=== PATIENT | male | born 1970 | race Caucasian/White ===

== ENCOUNTER → 2023-01-02 | Outpatient (CLI) | payer OTHER | END | disposition home or self-care (01) | LOC: RADMRIMAIN 17:50 | PROVIDERS: ATTEND Family Medicine | DX: Z53.9 Procedure and treatment not carried out, unspecified reason (principal) ==

== ENCOUNTER 2023-01-10 13:33 | Emergency (ER) | payer OTHER ==
[2023-01-10 13:38] VITALS: RESP 20
[2023-01-10] MEDS ORDERED: diphenhydrAMINE 50 MG/ML 1 ML VIAL IVP STA (13:47)
[2023-01-10] MEDS ORDERED: SODIUM CHLORIDE 0.9% 1,000 ML IV STA (13:47)
[2023-01-10] MEDS ORDERED: ONDANSETRON 4 MG/2 ML VIAL IVP STA (13:47)
[2023-01-10] MEDS ORDERED: KETOROLAC 15 MG/ML 1 ML VIAL IVP STA (13:47)
[2023-01-10] MEDS ORDERED: LORATADINE 10 MG TAB PO STA (14:01)
[2023-01-10] MEDS ORDERED: FLUTICASONE 50MCG/SPRAY NASAL 16GM EA NOSTRIL STA (14:01)
[2023-01-10] MEDS ORDERED: MAG HYDROX/AL HYDROX/SIMETH 30 ML, HYOSCYAMINE ELIXIR 10 ML, LIDOCAINE VISCOUS 2% 10 ML PO STA ×3 (14:18)
--- NOTE | 2023-01-10 14:21 | ED ---
General Adult HPI - General Chief complaint: Headache Stated complaint: headache Time Seen by Provider: 01/10/23 13:41 Source: patient Mode of arrival: ambulatory Limitations: no limitations - History of Present Illness Initial comments: Patient is a 52-year-old male who presents to the emergency department for headache. Patient has headache in his forehead and nasal congestion for the past 2 days. Patient reports continuous postnasal drip which he continues to swallow. He denies history of migraines. He denies fever, chills, throat pain, chest pain, shortness of breath. Patient states his stomach is very irritated in the upper middle abdomen from having swallowing but patient expresses concern that he is having a pancreatitis flareup. He has history of pancreatitis. He denies any back pain. He denies alcohol use and use of new medications. - Related Data Previous Rx's Medication Instructions Recorded Dicyclomine [Bentyl] 10 mg PO TID PRN 7 Days #21 capsule 11/25/22 Cetirizine HCl [Zyrtec] 10 mg PO DAILY #14 tab 01/10/23 Ibuprofen [Motrin] 600 mg PO Q8HR PRN #30 tab 01/10/23 Ondansetron Odt [Zofran Odt] 4 mg PO Q8HR PRN #10 tab 01/10/23 Allergies Allergy/AdvReac Type Severity Reaction Status Date / Time No Known Allergies Allergy Verified 01/10/23 13:38 Review of Systems ROS Statement: Those systems with pertinent positive or pertinent negative responses have been documented in the HPI. ROS Other: All systems not noted in ROS Statement are negative. Past Medical History Past Medical History: No Reported History History of Any Multi-Drug Resistant Organisms: None Reported Past Surgical History: No Surgical Hx Reported Past Psychological History: No Psychological Hx Reported Smoking Status: Former smoker Past Alcohol Use History: None Reported Past Drug Use History: None Reported General Exam Limitations: no limitations General appearance: alert, in no apparent distress Head exam: Present: atraumatic, normocephalic, normal inspection Eye exam: Present: normal appearance, PERRL, EOMI. Absent: scleral icterus, conjunctival injection, periorbital swelling Respiratory exam: Present: normal lung sounds bilaterally. Absent: respiratory distress, wheezes, rales, rhonchi, stridor Cardiovascular Exam: Present: regular rate, normal rhythm, normal heart sounds. Absent: systolic murmur, diastolic murmur, rubs, gallop, clicks GI/Abdominal exam: Present: soft, normal bowel sounds. Absent: distended, tenderness, guarding, rebound, rigid Back exam: Present: normal inspection. Absent: paraspinal tenderness, vertebral tenderness Neurological exam: Present: alert, oriented X3, CN II-XII intact Psychiatric exam: Present: normal affect, normal mood Skin exam: Present: warm, dry, intact, normal color. Absent: rash Course Vital Signs 01/10/23 01/10/23 01/10/23 13:35 14:11 14:30 Temperature 98.4 F Pulse Rate 99 78 Respiratory 20 Rate Blood Pressure 144/82 126/84 O2 Sat by Pulse 99 98 99 Oximetry 01/10/23 15:00 Temperature Pulse Rate Respiratory Rate Blood Pressure 126/79 O2 Sat by Pulse 98 Oximetry Medical Decision Making - Medical Decision Making Was pt. sent in by a medical professional or institution (, PA, SKATESMAN, urgent care, hospital, or group home...) When possible be specific @ -No Did you speak to anyone other than the patient for history (EMS, parent, family, police, friend...)? What history was obtained from this source @ -No Did you review nursing and triage notes (agree or disagree)? Why? @ -I reviewed and agree with nursing and triage notes Were old charts reviewed (outside hosp., previous admission, EMS record, old EKG, old radiological studies, urgent care reports/EKG's, group home records)? Report findings @ -No old charts were reviewed Differential Diagnosis (chest pain, altered mental status, abdominal pain women, abdominal pain men, vaginal bleeding, weakness, fever, dyspnea, syncope, headache, dizziness, GI bleed, back pain, seizure, CVA, palpatations, mental health)? @ -URI, sinusitus,strep pharyngitis, viral pharyngitis, pneumonia, bronchitis- this list is not meant to be all-inclusive EKG interpreted by me (3pts min.). @ -As above X-rays interpreted by me (1pt min.). @ -None done CT interpreted by me (1pt min.). @ -None done U/S interpreted by me (1pt. min.). @ -None done What testing was considered but not performed or refused? (CT, X-rays, U/S, labs)? Why? @ -None What meds were considered but not given or refused? Why? @ -None Did you discuss the management of the patient with other professionals (professionals i.e. , PA, SKATESMAN, lab, RT, psych nurse, psychiatric social worker supervisor, it generalist, teacher, ecological technical officer, porter sample case)? Give summary @ -No Was smoking cessation discussed for >3mins.? @ -No Was critical care preformed (if so, how long)? @ -No Were there social determinants of health that impacted care today? How? (Homel essness, low income, unemployed, alcoholism, drug addiction, transportation, low edu. Level, literacy, decrease access to med. care, assisted, rehab)? @ -No Was there de-escalation of care discussed even if they declined (Discuss DNR or withdrawal of care, Hospice)? DNR status @ -No What co-morbidities impacted this encounter? (DM, HTN, Smoking, COPD, CAD, Cancer, CVA, ARF, Chemo, Hep., AIDS, mental health diagnosis, sleep apnea, morbid obesity)? @ -None Was patient admitted / discharged? Hospital course, mention meds given and route, prescriptions, significant lab abnormalities, going to OR and other pertinent info. @ -Patient presenting with upper respiratory symptoms and mild epigastric pain. The abdomen is soft and nontender. Patient is afebrile. No cough. No vomiting. Laboratory studies obtained. There is no leukocytosis. Lipase within normal limits. COVID-19, RSV, influenza not detected. Patient given migraine cocktail with improvement of symptoms. Patient will be discharged with symptomatic management. He is to follow-up with primary care provider. Undiagnosed new problem with uncertain prognosis? @ -No Drug Therapy requiring intensive monitoring for toxicity (Heparin, Nitro, Insulin, Cardizem)? @ -No Were any procedures done? @ -No Diagnosis/symptom? @ -Upper respiratory infection, headache Acute, or Chronic, or Acute on Chronic? @ -Acute Uncomplicated (without systemic symptoms) or Complicated (systemic symptoms)? @ -Uncomplicated Side effects of treatment? @ -No Exacerbation, Progression, or Severe Exacerbation? @ -No Poses a threat to life or bodily function? How? (Chest pain, USA, CT, pneumonia, PE, COPD, DKA, ARF, appy, cholecystitis, CVA, Diverticulitis, Homicidal, Suicidal, threat to staff... and all critical care pts) @ -No Dr. Ross is my attending - Lab Data Result diagrams: 01/10/23 14:09 01/10/23 14:09 Lab Results 01/10/23 01/10/23 01/10/23 Range/Units 14:09 14:09 14:09 WBC 4.7 (3.8-10.6) k/uL RBC 5.09 (4.30-5.90) m/uL Hgb 16.4 (13.0-17.5) gm/dL Hct 47.9 (39.0-53.0) % MCV 94.0 (80.0-100.0) fL MCH 32.1 (25.0-35.0) pg MCHC 34.2 (31.0-37.0) g/dL RDW 13.0 (11.5-15.5) % Plt Count 173 (150-450) k/uL MPV 7.9 Neutrophils % 61 % Lymphocytes % 29 % Monocytes % 6 % Eosinophils % 2 % Basophils % 1 % Neutrophils # 2.8 (1.3-7.7) k/uL Lymphocytes # 1.4 (1.0-4.8) k/uL Monocytes # 0.3 (0-1.0) k/uL Eosinophils # 0.1 (0-0.7) k/uL Basophils # 0.0 (0-0.2) k/uL Sodium (137-145) mmol/L Potassium (3.5-5.1) mmol/L Chloride (98-107) mmol/L Carbon Dioxide (22-30) mmol/L Anion Gap mmol/L BUN (9-20) mg/dL Creatinine (0.66-1.25) mg/dL Est GFR (CKD-EPI)AfAm (>60 ml/min/1.73 sqM) Est GFR (CKD-EPI)NonAf (>60 ml/min/1.73 sqM) Glucose (74-99) mg/dL Calcium (8.4-10.2) mg/dL Total Bilirubin (0.2-1.3) mg/dL AST (17-59) U/L ALT (4-49) U/L Alkaline Phosphatase (38-126) U/L Total Protein (6.3-8.2) g/dL Albumin (3.5-5.0) g/dL Lipase (23-300) U/L Urine Color Light Yellow Urine Appearance Clear (Clear) Urine pH 6.0 (5.0-8.0) Ur Specific [place] 1.007 (1.001-1.035) Urine Protein Negative (Negative) Urine Glucose (UA) Negative (Negative) Urine Ketones 1+ H (Negative) Urine Blood Negative (Negative) Urine Nitrite Negative (Negative) Urine Bilirubin Negative (Negative) Urine Urobilinogen <2.0 (<2.0) mg/dL Ur Leukocyte Esterase Negative (Negative) Influenza Type A (PCR) Not Detected (Not Detectd) Influenza Type B (PCR) Not Detected (Not Detectd) RSV (PCR) Not Detected (Not Detectd) SARS-CoV-2 (PCR) Not Detected (Not Detectd) 01/10/23 Range/Units 14:09 WBC (3.8-10.6) k/uL RBC (4.30-5.90) m/uL Hgb (13.0-17.5) gm/dL Hct (39.0-53.0) % MCV (80.0-100.0) fL MCH (25.0-35.0) pg MCHC (31.0-37.0) g/dL RDW (11.5-15.5) % Plt Count (150-450) k/uL MPV Neutrophils % % Lymphocytes % % Monocytes % % Eosinophils % % Basophils % % Neutrophils # (1.3-7.7) k/uL Lymphocytes # (1.0-4.8) k/uL Monocytes # (0-1.0) k/uL Eosinophils # (0-0.7) k/uL Basophils # (0-0.2) k/uL Sodium 138 (137-145) mmol/L Potassium 4.0 (3.5-5.1) mmol/L Chloride 102 (98-107) mmol/L Carbon Dioxide 27 (22-30) mmol/L Anion Gap 9 mmol/L BUN 14 (9-20) mg/dL Creatinine 0.72 (0.66-1.25) mg/dL Est GFR (CKD-EPI)AfAm >90 (>60 ml/min/1.73 sqM) Est GFR (CKD-EPI)NonAf >90 (>60 ml/min/1.73 sqM) Glucose 105 H (74-99) mg/dL Calcium 9.0 (8.4-10.2) mg/dL Total Bilirubin 1.1 (0.2-1.3) mg/dL AST 23 (17-59) U/L ALT 19 (4-49) U/L Alkaline Phosphatase 68 (38-126) U/L Total Protein 7.7 (6.3-8.2) g/dL Albumin 4.4 (3.5-5.0) g/dL Lipase 87 (23-300) U/L Urine Color Urine Appearance (Clear) Urine pH (5.0-8.0) Ur Specific [place] (1.001-1.035) Urine Protein (Negative) Urine Glucose (UA) (Negative) Urine Ketones (Negative) Urine Blood (Negative) Urine Nitrite (Negative) Urine Bilirubin (Negative) Urine Urobilinogen (<2.0) mg/dL Ur Leukocyte Esterase (Negative) Influenza Type A (PCR) (Not Detectd) Influenza Type B (PCR) (Not Detectd) RSV (PCR) (Not Detectd) SARS-CoV-2 (PCR) (Not Detectd) Disposition Clinical Impression: Upper respiratory infection Disposition: HOME SELF-CARE Condition: Good Instructions (If sedation given, give patient instructions): Acute Headache (ED) Additional Instructions: Take medication as directed. Please follow-up with your primary care provider in 1-2 days. Return to the emergency department if you experience new, concerning, or worsening symptoms.. Prescriptions: Ibuprofen [Motrin] 600 mg PO Q8HR PRN #30 tab PRN Reason: Pain Ondansetron Odt [Zofran Odt] 4 mg PO Q8HR PRN #10 tab PRN Reason: Nausea Cetirizine HCl [Zyrtec] 10 mg PO DAILY #14 tab Is patient prescribed a controlled substance at d/c from ED?: No Referrals: Angela Walton MD [Primary Care Provider] - 1-2 days
[2023-01-10 14:24] LABS: Basophils % (A) 1 %; Eosinophils # (A) 0.1 k/uL (0-0.7); Eosinophils % (A) 2 %; HCT 47.9 % (39.0-53.0); HGB 16.4 gm/dL (13.0-17.5); Lymphocytes # (A) 1.4 k/uL (1.0-4.8); Lymphocytes % (A) 29 %; MCH 32.1 pg (25.0-35.0); MCHC 34.2 g/dL (31.0-37.0); Mean Platelet Volume 7.9; Monocytes # (A) 0.3 k/uL (0-1.0); Monocytes % (A) 6 %; Neutrophils # (A) 2.8 k/uL (1.3-7.7); Neutrophils % (A) 61 %; Platelet Count 173 k/uL (150-450); RBC 5.09 m/uL (4.30-5.90); WBC 4.7 k/uL (3.8-10.6)
[2023-01-10 14:33] LABS: ALT 19 U/L (4-49); AST 23 U/L (17-59); African American GFR (CKD) >90 (>60 ml/min/1.73 sqM); Albumin 4.4 g/dL (3.5-5.0); Alkaline Phosphatase 68 U/L (38-126); Anion Gap 9 mmol/L; Blood Urea Nitrogen 14 mg/dL (9-20); Carbon Dioxide 27 mmol/L (22-30); Chloride 102 mmol/L (98-107); Glucose 105 mg/dL (74-99); Lipase 87 U/L (23-300); Non-African American GFR(CKD) >90 (>60 ml/min/1.73 sqM); Sodium 138 mmol/L (137-145); Total Bilirubin 1.1 mg/dL (0.2-1.3); Total Protein 7.7 g/dL (6.3-8.2)
[2023-01-10 15:04] LABS: Appearance,Urine Clear (Clear); Bilirubin,Urine Negative (Negative); Blood,Urine Negative (Negative); Color,Urine Light Yellow; Glucose,Urine (UA) Negative (Negative); Ketones,Urine 1+ (Negative); Leukocyte Esterase,Urine Negative (Negative); Nitrite,Urine Negative (Negative); Protein,Urine Negative (Negative); Specific Gravity,Urine 1.007 (1.001-1.035); Urobilinogen,Urine <2.0 mg/dL (<2.0)
[2023-01-10 16:06] VITALS: BP 117/87; PULSE 66; TEMP 98.6
== END 2023-01-10 16:20 | disposition home or self-care (01) ==
LOC: EC 13:33
DX: J06.9 Acute upper respiratory infection, unspecified (principal); Z20.822 Contact with and (suspected) exposure to COVID-19; Z87.891 Personal history of nicotine dependence
CPT/HCPCS: 36415; 80053; 83690; 85025; 81003; 87636; 99284; 96374; 96375 ×2; 96361; J1200; J2405; J1885

== ENCOUNTER 2023-01-19 14:16 | Emergency (ER) | payer OTHER ==
[2023-01-19 14:53] VITALS: RESP 18; TEMP 98.3
--- NOTE | 2023-01-19 15:42 | ED ---
Abdominal Pain HPI - General Chief Complaint: Abdominal Pain Stated Complaint: rt side pain Time Seen by Provider: 01/19/23 15:41 Source: patient Mode of arrival: ambulatory Limitations: no limitations - History of Present Illness Initial Comments: patient is a 52-year-old male presenting with chief complaint of right upper quadrant pain. Pain is been ongoing for the last 2-3 months. Patient is also complaining of testicular pain that been ongoing for similar amount of time. No redness or swelling. No vomiting. No dysuria or hematuria. - Related Data Previous Rx's Medication Instructions Recorded Dicyclomine [Bentyl] 10 mg PO TID PRN 7 Days #21 capsule 11/25/22 Cetirizine HCl [Zyrtec] 10 mg PO DAILY #14 tab 01/10/23 Ibuprofen [Motrin] 600 mg PO Q8HR PRN #30 tab 01/10/23 Ondansetron Odt [Zofran Odt] 4 mg PO Q8HR PRN #10 tab 01/10/23 Allergies Allergy/AdvReac Type Severity Reaction Status Date / Time No Known Allergies Allergy Verified 01/19/23 14:53 Review of Systems ROS Statement: Those systems with pertinent positive or pertinent negative responses have been documented in the HPI. ROS Other: All systems not noted in ROS Statement are negative. Past Medical History Past Medical History: No Reported History History of Any Multi-Drug Resistant Organisms: None Reported Past Surgical History: No Surgical Hx Reported Past Psychological History: No Psychological Hx Reported Smoking Status: Former smoker Past Alcohol Use History: None Reported Past Drug Use History: None Reported General Exam - General Exam Comments Initial Comments: Visual Physical Exam Vital signs reviewed General: Well-appearing, nontoxic, no acute distress. Head: Normocephalic, atraumatic Eyes: PERRLA, EOMI ENT: Airway patent Chest: Nonlabored breathing Skin: No visual rash, normal skin tone Neuro: Alert and oriented 3 Musculoskeletal: No gross abnormalities Limitations: no limitations General appearance: alert, in no apparent distress Head exam: Present: atraumatic, normocephalic, normal inspection Eye exam: Present: normal appearance, EOMI. Absent: periorbital swelling Neck exam: Present: normal inspection, full ROM Respiratory exam: Present: normal lung sounds bilaterally. Absent: respiratory distress, wheezes, rales, rhonchi, stridor Cardiovascular Exam: Present: regular rate, normal rhythm, normal heart sounds. Absent: systolic murmur, diastolic murmur, rubs, gallop, clicks GI/Abdominal exam: Present: soft. Absent: distended, tenderness, guarding, rebound, rigid Neurological exam: Present: alert, oriented X3, CN II-XII intact Psychiatric exam: Present: normal affect, normal mood Skin exam: Present: warm, dry, intact, normal color. Absent: rash Course Vital Signs 01/19/23 14:51 Temperature 98.3 F Pulse Rate 82 Respiratory 18 Rate Blood Pressure 131/79 O2 Sat by Pulse 99 Oximetry Medical Decision Making - Medical Decision Making Was pt. sent in by a medical professional or institution (, PA, POLICE JUDGE, urgent care, hospital, or long-term...) When possible be specific @ -No Did you speak to anyone other than the patient for history (EMS, parent, family, police, friend...)? What history was obtained from this source @ -No Did you review nursing and triage notes (agree or disagree)? Why? @ -I reviewed and agree with nursing and triage notes Were old charts reviewed (outside hosp., previous admission, EMS record, old EKG, old radiological studies, urgent care reports/EKG's, long-term records)? Report findings @ -No old charts were reviewed Differential Diagnosis (chest pain, altered mental status, abdominal pain women, abdominal pain men, vaginal bleeding, weakness, fever, dyspnea, syncope, headache, dizziness, GI bleed, back pain, seizure, CVA, palpatations, mental health, musculoskeletal)? @ -Differential includes musculoskeletal pain, rib fracture, cholecystitis, this is not known simplest EKG interpreted by me (3pts min.). @ -As above X-rays interpreted by me (1pt min.). @ -Chest x-ray shows no acute process CT interpreted by me (1pt min.). @ -None done U/S interpreted by me (1pt. min.). @ -Ultrasound of the right upper quadrant and scrotum showed no acute process What testing was considered but not performed or refused? (CT, X-rays, U/S, labs)? Why? @ -None What meds were considered but not given or refused? Why? @ -None Did you discuss the management of the patient with other professionals (professionals i.e. Dr., PA, POLICE JUDGE, lab, RT, psych nurse, secondary social studies teacher, professor of public administration, teacher, safety and security officer, adult protective caseworker)? Give summary @ -No Was smoking cessation discussed for >3mins.? @ -No Was critical care preformed (if so, how long)? @ -No Were there social determinants of health that impacted care today? How? (Homelessness, low income, unemployed, alcoholism, drug addiction, transportation, low edu. Level, literacy, decrease access to med. care, group home, rehab)? @ -No Was there de-escalation of care discussed even if they declined (Discuss DNR or withdrawal of care, Hospice)? DNR status @ -No What co-morbidities impacted this encounter? (DM, HTN, Smoking, COPD, CAD, Cancer, CVA, ARF, Chemo, Hep., AIDS, mental health diagnosis, sleep apnea, mor bid obesity)? @ -None Was patient admitted / discharged? Hospital course, mention meds given and route, prescriptions, significant lab abnormalities, going to OR and other pertinent info. @ -Patient is a 52-year-old male presenting with chief complaint of right-sided rib pain that is ongoing for 2-3 months. Patient also admits to some scrotal pain is been ongoing for the same amount of time. No nausea, vomiting, chest pain, difficulty breathing, injury or trauma. Urine shows no bleeding or infection. Ultrasound of the right upper quadrant and scrotum are negative. Chest x-ray shows no acute process. Patient is resting comfortably. He appears stable for discharge with outpatient follow-up. Follow-up with PCP. Report back to ER with any new or worsening symptoms. Discussed return parameters and answered all questions. Patient conveyed verbal understanding and agreed to the plan. I discussed this case in detail with my attending Dr. Garcia Undiagnosed new problem with uncertain prognosis? @ -No Drug Therapy requiring intensive monitoring for toxicity (Heparin, Nitro, Insulin, Cardizem)? @ -No Were any procedures done? @ -No Diagnosis/symptom? @ -Rib pain Acute, or Chronic, or Acute on Chronic? @ -Acute Uncomplicated (without systemic symptoms) or Complicated (systemic symptoms)? @ -Uncomplicated Side effects of treatment? @ -No Exacerbation, Progression, or Severe Exacerbation? @ -No Poses a threat to life or bodily function? How? (Chest pain, USA, CT, pneumonia, PE, COPD, DKA, ARF, appy, cholecystitis, CVA, Diverticulitis, Homicidal, Suicidal, threat to staff... and all critical care pts) @ -No - Lab Data Lab Results 01/19/23 Range/Units 18:02 Urine Color Light Yellow Urine Appearance Clear (Clear) Urine pH 6.0 (5.0-8.0) Ur Specific [place] 1.006 (1.001-1.035) Urine Protein Negative (Negative) Urine Glucose (UA) Negative (Negative) Urine Ketones Negative (Negative) Urine Blood Negative (Negative) Urine Nitrite Negative (Negative) Urine Bilirubin Negative (Negative) Urine Urobilinogen <2.0 (<2.0) mg/dL Ur Leukocyte Esterase Negative (Negative) Disposition Clinical Impression: Rib pain Disposition: HOME SELF-CARE Condition: Good Instructions (If sedation given, give patient instructions): Costochondritis (ED) Additional Instructions: Follow-up with PCP. Report back to ER with any new or worsening symptoms. Take Motrin and Tylenol as needed for pain control. Is patient prescribed a controlled substance at d/c from ED?: No Referrals: Angela Walton MD [Primary Care Provider] - 1-2 days Time of Disposition: 18:40
--- NOTE | 2023-01-19 16:42 | US ---
EXAMINATION TYPE: US abdomen limited DATE OF EXAM: 01/19/2023 COMPARISON: NONE CLINICAL INDICATION: Male, 52 years old with history of RUQ pain; RUQ pain TECHNIQUE: Multiple sonographic images of the right upper quadrant are obtained. FINDINGS: EXAM MEASUREMENTS: Liver Length: 12.7 cm Gallbladder Wall: .2 cm CBD: .3 cm Right Kidney: 9.6 x 5.0 x 3.8 cm REPAIRER RESISTANCE WELDING MACHINES NOTES: Pancreas: Heterogenous. Liver: wnl Gallbladder: No stones seen Evidence for sonographic Fermin's sign: no CBD: wnl Right Kidney: wnl The visualized portions of the pancreas are unremarkable. The liver is unremarkable without evidence of focal lesion. No cholelithiasis, pericholecystic fluid, or wall thickening. Per forming and assembling supervisor, negat chen sonographic Fermin sign. The common bile duct within normal limits. The right kidney is unremarka ble without evidence of hydronephrosis, nephrolithiasis, or solid contour deforming mass. IMPRESSION: No acute process.
--- NOTE | 2023-01-19 16:45 | US ---
EXAMINATION TYPE: US scrotum with doppler. Grayscale and color Doppler Duplex imaging performed of t magalis scrotum. DATE OF EXAM: 01/19/2023 COMPARISON: Scrotal ultrasound 11/13/2022 CLINICAL INDICATION: Male, 52 years old with history of L testicular pain; Left testicle pain. EXAM MEASUREMENTS: TESTICLES: Right Testicle: 4.2 x 1.8 x 3.0 cm Left Testicle: 4.2 x 2.1 x 2.9 cm EPIDIDYMIS HEAD: Right Epididymis: 1.1 x 1.0 x .9 cm Left Epididymis: 1.1 x .7 x 1.1 cm Doppler performed to assess for testicular vascularity; good bilateral color flow and waveforms are s een. There is no evidence of testicular torsion. Presence of hydroceles: No Presence of varicoceles: No IMPRESSION: Unremarkable scrotal ultrasound. No significant change from prior exam.
--- NOTE | 2023-01-19 17:30 | XR ---
EXAMINATION TYPE: XR chest 2V DATE OF EXAM: 01/19/2023 COMPARISON: None INDICATION: Right-sided rib pain TECHNIQUE: Frontal and lateral views of the chest are obtained. FINDINGS: The heart size is normal. The pulmonary vasculature is normal. The lungs are clear. No acute displaced rib fractures are evident. No pneumothorax is evident. IMPRESSION: 1. No acute pulmonary process.
[2023-01-19 18:22] LABS: Appearance,Urine Clear (Clear); Bilirubin,Urine Negative (Negative); Blood,Urine Negative (Negative); Color,Urine Light Yellow; Glucose,Urine (UA) Negative (Negative); Ketones,Urine Negative (Negative); Leukocyte Esterase,Urine Negative (Negative); Nitrite,Urine Negative (Negative); Protein,Urine Negative (Negative); Specific Gravity,Urine 1.006 (1.001-1.035); Urobilinogen,Urine <2.0 mg/dL (<2.0)
[2023-01-19] MEDS ORDERED: LIDOCAINE 5% PATCH TOPICAL STA (18:38)
[2023-01-19] MEDS ORDERED: KETOROLAC 15 MG/ML 1 ML VIAL IM STA (18:38)
[2023-01-19 19:58] VITALS: BP 128/82; PULSE 78
== END 2023-01-19 19:56 | disposition home or self-care (01) ==
LOC: EC 14:16
DX: R07.81 Pleurodynia (principal); Z87.891 Personal history of nicotine dependence
CPT/HCPCS: 81003; 71046; 93975; 76870; 76705; 99284; 96372; J1885

== ENCOUNTER 2023-01-26 11:45 | Emergency (ER) | payer OTHER ==
[2023-01-26 12:15] VITALS: TEMP 98.4
[2023-01-26 12:49] LABS: Appearance,Urine Clear (Clear); Bilirubin,Urine Negative (Negative); Blood,Urine Negative (Negative); Color,Urine Colorless; Glucose,Urine (UA) Negative (Negative); Ketones,Urine Negative (Negative); Leukocyte Esterase,Urine Negative (Negative); Nitrite,Urine Negative (Negative); Protein,Urine Negative (Negative); Specific Gravity,Urine 1.001 (1.001-1.035); Urobilinogen,Urine <2.0 mg/dL (<2.0)
--- NOTE | 2023-01-26 14:06 | XR ---
EXAMINATION TYPE: XR chest 2V DATE OF EXAM: 01/26/2023 COMPARISON: Chest x-ray one week ago HISTORY: Cough. TECHNIQUE: Frontal and lateral views of the chest are obtained. FINDINGS: There is no suspicious focal air space opacity, pleural effusion, or pneumothorax seen. T he cardiac silhouette size is stable and within normal limits. The osseous structures are intact. IMPRESSION: No acute cardiopulmonary process. No significant change from prior.
--- NOTE | 2023-01-26 14:45 | ED ---
General Adult HPI - General Chief complaint: Headache Stated complaint: Head Pain/Side pain right Time Seen by Provider: 01/26/23 13:40 Source: patient, RN notes reviewed Mode of arrival: ambulatory Limitations: no limitations - History of Present Illness Initial comments: 52-year-old male presents emergency Department with chief complaint of headache, congestion, sinus pressure. Patient states that he's been sick for over 2 weeks with sinus congestion and facial pressure with headache. Patient states been coughing does complain of right rib pain no abdominal pain denies nausea vomiting diarrhea constipation. Denies feeling short of breath with exertion no pleuritic pain. - Related Data Previous Rx's Medication Instructions Recorded Dicyclomine [Bentyl] 10 mg PO TID PRN 7 Days #21 capsule 11/25/22 Cetirizine HCl [Zyrtec] 10 mg PO DAILY #14 tab 01/10/23 Ibuprofen [Motrin] 600 mg PO Q8HR PRN #30 tab 01/10/23 Ondansetron Odt [Zofran Odt] 4 mg PO Q8HR PRN #10 tab 01/10/23 Amoxic-Pot Clav 875-125Mg 1 tab PO Q12HR #20 tab 01/26/23 [Augmentin 875-125] Allergies Allergy/AdvReac Type Severity Reaction Status Date / Time No Known Allergies Allergy Verified 01/26/23 12:15 Review of Systems ROS Statement: Those systems with pertinent positive or pertinent negative responses have been documented in the HPI. ROS Other: All systems not noted in ROS Statement are negative. Past Medical History Past Medical History: No Reported History History of Any Multi-Drug Resistant Organisms: None Reported Past Surgical History: No Surgical Hx Reported Past Psychological History: No Psychological Hx Reported Smoking Status: Former smoker Past Alcohol Use History: None Reported Past Drug Use History: None Reported General Exam Limitations: no limitations General appearance: alert, in no apparent distress Head exam: Present: atraumatic, normocephalic, normal inspection Eye exam: Present: normal appearance, PERRL, EOMI. Absent: scleral icterus, conjunctival injection, periorbital swelling ENT exam: Present: mucous membranes moist, TM's normal bilaterally, normal external ear exam, other (Frontal sinus tenderness). Absent: normal oropharynx (Postnasal drainage) Neck exam: Present: normal inspection, full ROM. Absent: tenderness, meningismus, lymphadenopathy Respiratory exam: Present: normal lung sounds bilaterally, chest wall tenderness (Right-sided rib tenderness). Absent: respiratory distress, wheezes, rales, rhonchi, stridor Cardiovascular Exam: Present: regular rate, normal rhythm, normal heart sounds. Absent: systolic murmur, diastolic murmur, rubs, gallop, clicks Back exam: Absent: CVA tenderness (R), CVA tenderness (L) Neurological exam: Present: alert Skin exam: Present: warm, dry, intact, normal color. Absent: rash Course Vital Signs 01/26/23 01/26/23 12:14 14:52 Temperature 98.4 F Pulse Rate 86 84 Respiratory 20 18 Rate Blood Pressure 107/75 110/80 O2 Sat by Pulse 96 96 Oximetry Medical Decision Making - Medical Decision Making Was pt. sent in by a medical professional or institution (, PA, AUTOMATION ENGINEERING MANAGER, urgent care, hospital, or custodial...) When possible be specific @ -No Did you speak to anyone other than the patient for history (EMS, parent, family, police, friend...)? What history was obtained from this source @ -No Did you review nursing and triage notes (agree or disagree)? Why? @ -I reviewed and agree with nursing and triage notes Were old charts reviewed (outside hosp., previous admission, EMS record, old EKG , old radiological studies, urgent care reports/EKG's, custodial records)? Report findings @ -No old charts were reviewed Differential Diagnosis (chest pain, altered mental status, abdominal pain women, abdominal pain men, vaginal bleeding, weakness, fever, dyspnea, syncope, headache, dizziness, GI bleed, back pain, seizure, CVA, palpatations, mental health, musculoskeletal)? @ -Sinusitis, acute bronchitis, pneumonia, costochondritis, this list is not all-inclusive. EKG interpreted by me (3pts min.). @ -None X-rays interpreted by me (1pt min.). @ -Chest x-ray shows no acute process. CT interpreted by me (1pt min.). @ -None done U/S interpreted by me (1pt. min.). @ -None done What testing was considered but not performed or refused? (CT, X-rays, U/S, labs)? Why? @ -None What meds were considered but not given or refused? Why? @ -None Did you discuss the management of the patient with other professionals (professionals i.e. , PA, AUTOMATION ENGINEERING MANAGER, lab, RT, psych nurse, social security benefits interviewer, management consulting, teacher, public health service officer, case liner)? Give summary @ -No Was smoking cessation discussed for >3mins.? @ -No Was critical care preformed (if so, how long)? @ -No Were there social determinants of health that impacted care today? How? (Homelessness, low income, unemployed, alcoholism, drug addiction, transportation, low edu. Level, literacy, decrease access to med. care, nursing home, rehab)? @ -No Was there de-escalation of care discussed even if they declined (Discuss DNR or withdrawal of care, Hospice)? DNR status @ -No What co-morbidities impacted this encounter? (DM, HTN, Smoking, COPD, CAD, Cancer, CVA, ARF, Chemo, Hep., AIDS, mental health diagnosis, sleep apnea, morbid obesity)? @ -None Was patient admitted / discharged? Hospital course, mention meds given and route, prescriptions, significant lab abnormalities, going to OR and other pertinent info. @ -Discharge patient has acute sinusitis his symptoms have been present for 2 weeks. Patient was placed on Augmentin. Patient is worse or rib tenderness from coughing x-ray is negative this is related to costochondritis. Patient will be discharged and stable condition with close follow-up. Undiagnosed new problem with uncertain prognosis? @ -No Drug Therapy requiring intensive monitoring for toxicity (Heparin, Nitro, Insulin, Cardizem)? @ -No Were any procedures done? @ -No Diagnosis/symptom? @ -Sinusitis, costochondritis Acute, or Chronic, or Acute on Chronic? @ -Acute Uncomplicated (without systemic symptoms) or Complicated (systemic symptoms)? @ -Uncomplicated Side effects of treatment? @ -No Exacerbation, Progression, or Severe Exacerbation? @ -No Poses a threat to life or bodily function? How? (Chest pain, [place], [place], pneumonia, PE, COPD, DKA, ARF, appy, cholecystitis, CVA, Diverticulitis, Homicidal, Suicidal, threat to staff... and all critical care pts) @ -No - Lab Data Lab Results 01/26/23 Range/Units 12:19 Urine Color Colorless Urine Appearance Clear (Clear) Urine pH 6.0 (5.0-8.0) Ur Specific Cosmos 1.001 (1.001-1.035) Urine Protein Negative (Negative) Urine Glucose (UA) Negative (Negative) Urine Ketones Negative (Negative) Urine Blood Negative (Negative) Urine Nitrite Negative (Negative) Urine Bilirubin Negative (Negative) Urine Urobilinogen <2.0 (<2.0) mg/dL Ur Leukocyte Esterase Negative (Negative) Disposition Clinical Impression: Sinusitis, Rib pain on right side Disposition: HOME SELF-CARE Condition: Stable Instructions (If sedation given, give patient instructions): Costochondritis (ED) Additional Instructions: Please return to the Emergency Department if symptoms worsen or any other concerns. Prescriptions: Amoxic-Pot Clav 875-125Mg [Augmentin 875-125] 1 tab PO Q12HR #20 tab Is patient prescribed a controlled substance at d/c from ED?: No Referrals: Angela Walton MD [Primary Care Provider] - 1-2 days Time of Disposition: 14:45
[2023-01-26 14:53] VITALS: BP 110/80; PULSE 84; RESP 18
== END 2023-01-26 14:53 | disposition home or self-care (01) ==
LOC: EC 11:45
DX: J32.9 Chronic sinusitis, unspecified (principal); M94.0 Chondrocostal junction syndrome [Tietze]; Z87.891 Personal history of nicotine dependence
CPT/HCPCS: 71046; 81003; 99284

== ENCOUNTER 2023-02-09 16:48 | Emergency (ER) | payer OTHER ==
[2023-02-09 17:18] VITALS: RESP 16; TEMP 98.2
[2023-02-09] MEDS ORDERED: ONDANSETRON 4 MG/2 ML VIAL IVP STA (19:03)
[2023-02-09] MEDS ORDERED: SODIUM CHLORIDE 0.9% 1,000 ML IV STA (19:03)
[2023-02-09] MEDS ORDERED: KETOROLAC 15 MG/ML 1 ML VIAL IVP STA (19:03)
[2023-02-09] MEDS ORDERED: diphenhydrAMINE 50 MG/ML 1 ML VIAL IVP STA (19:03)
--- NOTE | 2023-02-09 19:40 | ED ---
General Adult HPI - General Chief complaint: Headache Stated complaint: headache Time Seen by Provider: 02/09/23 18:33 Source: patient Mode of arrival: ambulatory Limitations: no limitations - History of Present Illness Initial comments: Dictation was produced using Meludia dictation software. please excuse any grammatical, word or spelling errors. Chief Complaint: 52-year-old male presents emergency Department with headache History of Present Illness: 52-year-old male presents to the ER for headache. Patient has been having intermittent bouts of headaches for the last 2 days. He states she's been dealing with sinus pressure and sinus headaches for the last several weeks. Saw his primary care doctor who ordered sinus CT and CT chest. Patient states that the headache is frontal. Nonsevere. States that his symptoms are waxing and waning. Denies any numbness and paresthesias. No vision changes patient was seen in the ER 2 weeks ago for the same complaint. The ROS documented in this emergency department record has been reviewed and confirmed by me. Those systems with pertinent positive or negative responses have been documented in the HPI. All other systems are other negative and/or noncontributory. - Related Data Previous Rx's Medication Instructions Recorded Dicyclomine [Bentyl] 10 mg PO TID PRN 7 Days #21 capsule 11/25/22 Cetirizine HCl [Zyrtec] 10 mg PO DAILY #14 tab 01/10/23 Ibuprofen [Motrin] 600 mg PO Q8HR PRN #30 tab 01/10/23 Ondansetron Odt [Zofran Odt] 4 mg PO Q8HR PRN #10 tab 01/10/23 Amoxic-Pot Clav 875-125Mg 1 tab PO Q12HR #20 tab 01/26/23 [Augmentin 875-125] Allergies Allergy/AdvReac Type Severity Reaction Status Date / Time No Known Allergies Allergy Verified 02/09/23 17:18 Review of Systems ROS Statement: Those systems with pertinent positive or pertinent negative responses have been documented in the HPI. ROS Other: All systems not noted in ROS Statement are negative. Past Medical History Past Medical History: No Reported History History of Any Multi-Drug Resistant Organisms: None Reported Past Surgical History: No Surgical Hx Reported Past Psychological History: No Psychological Hx Reported Smoking Status: Former smoker Past Alcohol Use History: None Reported Past Drug Use History: None Reported General Exam - General Exam Comments Initial Comments: PHYSICAL EXAM: General Impression: Alert and oriented x3, not in acute distress HEENT: Normocephalic atraumatic, extra-ocular movements intact, pupils equal and reactive to light bilaterally, mucous membranes moist. Cardiovascular: Heart regular rate and rhythm Chest: Able to complete full sentences, no retractions, no tachypnea Abdomen: abdomen soft, non-tender, non-distended, no organomegaly Musculoskeletal: Pulses present and equal in all extremities, no peripheral edema Motor: no focal deficits noted Neurological: CN II-XII grossly intact, no focal motor or sensory deficits noted Skin: Intact with no visualized rashes Psych: Normal affect and mood Limitations: no limitations Course Vital Signs 02/09/23 17:16 Temperature 98.2 F Pulse Rate 83 Respiratory 16 Rate Blood Pressure 124/79 O2 Sat by Pulse 98 Oximetry - Reevaluation(s) Reevaluation #1: 02/09/23 20:[address] and chest CT was reviewed ordered by primary care doctor earlier today. No paranasal sinus disease noted. Does appear to be severe nasal septal displacement. CT chest shows no acute pulmonary process. Medical Decision Making - Medical Decision Making Was pt. sent in by a medical professional or institution (, PA, VIDEO GAMES MECHANIC, urgent care, hospital, or fdc...) When possible be specific @ -No Did you speak to anyone other than the patient for history (EMS, parent, family, police, friend...)? What history was obtained from this source @ -No Did you review nursing and triage notes (agree or disagree)? Why? @ -I reviewed and agree with nursing and triage notes Were old charts reviewed (outside hosp., previous admission, EMS record, old EKG, old radiological studies, urgent care reports/EKG's, fdc records)? Report findings @ -Outside imaging studies were reviewed showing normal CT sinus Differential Diagnosis (chest pain, altered mental status, abdominal pain women, abdominal pain men, vaginal bleeding, musculoskeletal, weakness, fever, dyspnea, syncope, headache, dizziness, GI bleed, back pain, seizure, CVA, palpatations, mental health)? @ -Differential Headache: Migraine, tension, cluster, carbon monoxide, central venous thrombosis, pension karma temporal arteritis, acute closure glaucoma, intercranial hemorrhage, mastoiditis, sinusitis, head injury, this is not meant to be an all-inclusive list. EKG interpreted by me (3pts min.). @ -None done X-rays interpreted by me (1pt min.). @ -None done CT interpreted by me (1pt min.). @ -None done U/S interpreted by me (1pt. min.). @ -None done What testing was considered but not performed or refused? (CT, X-rays, U/S, labs)? Why? @ -None What meds were considered but not given or refused? Why? @ -None Did you discuss the management of the patient with other professionals (professionals i.e. DrGuillermo, PA, VIDEO GAMES MECHANIC, lab, RT, psych nurse, social media editor, senior marketing coordinator, teacher, executive vice president and chief operating officer, medical case worker)? Give summary @ -No Was smoking cessation discussed for >3mins.? @ -No Was critical care preformed (if so, how long)? @ -No Were there social determinants of health that impacted care today? How? (Homelessness, low income, unemployed, alcoholism, drug addiction, transportation, low edu. Level, literacy, decrease access to med. care, skilled nursing, rehab)? @ -No Was there de-escalation of care discussed even if they declined (Discuss DNR or withdrawal of care, Hospice)? DNR status @ -No What co-morbidities impacted this encounter? (DM, HTN, Smoking, COPD, CAD, Cancer, CVA, ARF, Chemo, Hep., AIDS, mental health diagnosis, sleep apnea, morbid obesity)? @ -None Was patient admitted / discharged? Hospital course, mention meds given and route, prescriptions, significant lab abnormalities, going to OR and other pertinent info. @ -52-year-old male presents emergency department for headache. Patient is a chronic headache. Patient had recent imaging studies. Patient has no high-risk features. Given headache cocktail discharged told to follow-up with primary care doctor. Undiagnosed new problem with uncertain prognosis? @ -No Drug Therapy requiring intensive monitoring for toxicity (Heparin, Nitro, Insulin, Cardizem)? @ -No Were any procedures done? @ -No Diagnosis/symptom? Acute, or Chronic, or Acute on Chronic? Uncomplicated (without systemic symptoms) or Complicated (systemic symptoms)? @ -1. Acute on Chronic Headache Side effects of treatment? @ -No Exacerbation, Progression, or Severe Exacerbation? @ -No Poses a threat to life or bodily function? How? (Chest pain, [place], [place], pneumonia, PE, COPD, DKA, ARF, appy, cholecystitis, CVA, Diverticulitis, Homicidal, Suicidal, threat to staff... and all critical care pts) @ -No Disposition Clinical Impression: Headache Disposition: HOME SELF-CARE Condition: Good Instructions (If sedation given, give patient instructions): Acute Headache (ED) Is patient prescribed a controlled substance at d/c from ED?: No Referrals: Angela Walton MD [Primary Care Provider] - 1-2 days Time of Disposition: 21:42
[2023-02-09 22:29] VITALS: BP 122/72; PULSE 78
== END 2023-02-09 22:29 | disposition home or self-care (01) ==
LOC: EC 16:48
DX: R51.9 Headache, unspecified (principal); Z87.891 Personal history of nicotine dependence
CPT/HCPCS: 99284; 96374; 96375 ×2; 96361; J1200; J2405; J1885

== ENCOUNTER 2023-02-14 18:57 | Emergency (ER) | payer OTHER ==
[2023-02-14 19:09] VITALS: RESP 18; TEMP 97.6
[2023-02-14] MEDS ORDERED: diphenhydrAMINE 50 MG/ML 1 ML VIAL IVP STA (20:06)
[2023-02-14] MEDS ORDERED: METOCLOPRAMIDE 5 MG/ML 2 ML VIAL IVP STA (20:06)
[2023-02-14] MEDS ORDERED: DEXAMETHASONE SOD PHOSPHATE 10 MG/ML 1 ML VIAL IVP STA (20:06)
[2023-02-14] MEDS ORDERED: KETOROLAC 15 MG/ML 1 ML VIAL IVP STA (20:06)
[2023-02-14] MEDS ORDERED: SODIUM CHLORIDE 0.9% 1,000 ML IV STA (20:16)
[2023-02-14 20:54] LABS: HCT 44.6 % (39.0-53.0); HGB 15.3 gm/dL (13.0-17.5); MCH 31.7 pg (25.0-35.0); MCHC 34.3 g/dL (31.0-37.0); MCV 92.4 fL (80.0-100.0); Mean Platelet Volume 8.4; Platelet Count 175 k/uL (150-450); RBC 4.82 m/uL (4.30-5.90); RDW 13.2 % (11.5-15.5); WBC 3.6 k/uL (3.8-10.6)
--- NOTE | 2023-02-14 21:17 | CT ---
EXAMINATION TYPE: CT brain wo con DATE OF EXAM: 02/14/2023 COMPARISON: 11/22/2022 HISTORY: headache CT DLP: 1099.[address] of the brain was performed. The ventricles, basal cisterns and sulci overlying the cerebral convexities demonstrate mild enlargem ent. There is no evidence for intracranial hemorrhage or sulcal effacement. There is decreased attenuation about the periventricular white matter and deep white matter of both c erebral hemispheres, compatible with chronic small vessel ischemia. Differential diagnosis does inclu de demyelination. No mass effects are seen.No midline shift. Osseous calvarium is intact. If symptoms persist consider MRI. IMPRESSION: 1. Age related atrophic and chronic small vessel ischemic change without acute intracranial process s een at this time.
[2023-02-14 21:42] LABS: ALT 23 U/L (4-49); AST 29 U/L (17-59); African American GFR (CKD) >90 (>60 ml/min/1.73 sqM); Albumin 4.1 g/dL (3.5-5.0); Alkaline Phosphatase 66 U/L (38-126); Anion Gap 10 mmol/L; Blood Urea Nitrogen 13 mg/dL (9-20); Calcium 8.7 mg/dL (8.4-10.2); Carbon Dioxide 25 mmol/L (22-30); Chloride 104 mmol/L (98-107); Glucose 92 mg/dL (74-99); Non-African American GFR(CKD) >90 (>60 ml/min/1.73 sqM); Potassium 3.9 mmol/L (3.5-5.1); Sodium 139 mmol/L (137-145); Total Bilirubin 0.5 mg/dL (0.2-1.3); Total Protein 7.2 g/dL (6.3-8.2)
--- NOTE | 2023-02-14 22:25 | ED ---
Headache HPI - General Chief Complaint: Headache Stated Complaint: headache Time Seen by Provider: 02/14/23 20:01 Mode of arrival: ambulatory Limitations: no limitations - History of Present Illness Initial Comments: Patient is a 52-year-old male presents to the emergency department for headache. Patient has had intermittent headache for the past month with worsening today. States there is sinus pressure in his forehead, mild to moderate in severity. He has been evaluated for this complaint in the emergency department multiple times and also by his primary care provider. He had a CT of the sinuses and chest. He denies numbness and tingling. He denies focal weakness. No double vision, blurry vision. No fever, chills, chest pain or shortness of breath. - Related Data Previous Rx's Medication Instructions Recorded Dicyclomine [Bentyl] 10 mg PO TID PRN 7 Days #21 capsule 11/25/22 Cetirizine HCl [Zyrtec] 10 mg PO DAILY #14 tab 01/10/23 Ibuprofen [Motrin] 600 mg PO Q8HR PRN #30 tab 01/10/23 Ondansetron Odt [Zofran Odt] 4 mg PO Q8HR PRN #10 tab 01/10/23 Amoxic-Pot Clav 875-125Mg 1 tab PO Q12HR #20 tab 01/26/23 [Augmentin 875-125] Allergies Allergy/AdvReac Type Severity Reaction Status Date / Time No Known Allergies Allergy Verified 02/09/23 17:18 Review of Systems ROS Statement: Those systems with pertinent positive or pertinent negative responses have been documented in the HPI. ROS Other: All systems not noted in ROS Statement are negative. Past Medical History Past Medical History: No Reported History History of Any Multi-Drug Resistant Organisms: None Reported Past Surgical History: No Surgical Hx Reported Past Psychological History: No Psychological Hx Reported Smoking Status: Former smoker Past Alcohol Use History: None Reported Past Drug Use History: None Reported General Exam Limitations: no limitations General appearance: alert, in no apparent distress Head exam: Present: atraumatic, normocephalic, normal inspection Eye exam: Present: normal appearance, PERRL, EOMI. Absent: scleral icterus, conjunctival injection, periorbital swelling ENT exam: Present: normal oropharynx, TM's normal bilaterally Respiratory exam: Present: normal lung sounds bilaterally. Absent: respiratory distress, wheezes, rales, rhonchi, stridor Cardiovascular Exam: Present: regular rate, normal rhythm, normal heart sounds. Absent: systolic murmur, diastolic murmur, rubs, gallop, clicks GI/Abdominal exam: Present: soft, normal bowel sounds. Absent: distended, tenderness, guarding, rebound, rigid Neurological exam: Present: alert, oriented X3, CN II-XII intact Expanded Speech: Present: fluid speech Sensory exam: Upper Extremity Light Touch: Normal, Lower Extremity Light Touch: Normal Motor strength exam: RUE: 5, LUE: 5, RLE: 5, LLE: 5 Psychiatric exam: Present: normal affect, normal mood Skin exam: Present: warm, dry, intact, normal color. Absent: rash Course Vital Signs 02/14/23 02/14/23 02/14/23 19:06 21:30 22:46 Temperature 97.6 F Pulse Rate 73 64 69 Respiratory 18 18 18 Rate Blood Pressure 124/81 108/73 105/68 O2 Sat by Pulse 98 95 100 Oximetry Medical Decision Making - Medical Decision Making Was pt. sent in by a medical professional or institution (, PA, LIME FILTER OPERATOR, urgent care, hospital, or [place] [facility] facility...) When possible be specific @ -No Did you speak to anyone other than the patient for history (EMS, parent, family, police, friend...)? What history was obtained from this source @ -No Did you review nursing and triage notes (agree or disagree)? Why? @ -I reviewed and agree with nursing and triage notes Were old charts reviewed (outside hosp., previous admission, EMS record, old EKG, old radiological studies, urgent care reports/EKG's, [place] [facility] facility records)? Report findings @ -Review sinus CT and chest CT which revealed no significant paranasal sinus disease. There is severe nasal septal displacement. No acute pulmonary process on chest CT. Differential Diagnosis (chest pain, altered mental status, abdominal pain women, abdominal pain men, vaginal bleeding, weakness, fever, dyspnea, syncope, headache, dizziness, GI bleed, back pain, seizure, CVA, palpatations, mental health)? @ -Differential Headache: Migraine, tension, cluster, carbon monoxide, central venous thrombosis, pension karma temporal arteritis, acute closure glaucoma, intercranial hemorrhage, mastoiditis, sinusitis, head injury, this is not meant to be an all-inclusive list. EKG interpreted by me (3pts min.). @ -As above X-rays interpreted by me (1pt min.). @ -None done CT interpreted by me (1pt min.). @ -CT of brain negative for acute intracranial process U/S interpreted by me (1pt. min.). @ -None done What testing was considered but not performed or refused? (CT, X-rays, U/S, labs)? Why? @ -None What meds were considered but not given or refused? Why? @ -None Did you discuss the management of the patient with other professionals (professionals i.e. DrGuillermo, PA, LIME FILTER OPERATOR, lab, RT, psych nurse, bilingual social worker, passenger flagman, teacher, disabilities services officer, block and case maker)? Give summary @ -No Was smoking cessation discussed for >3mins.? @ -No Was critical care preformed (if so, how long)? @ -No Were there social determinants of health that impacted care today? How? (Rosana elessness, low income, unemployed, alcoholism, drug addiction, transportation, low edu. Level, literacy, decrease access to med. care, snf, rehab)? @ -No Was there de-escalation of care discussed even if they declined (Discuss DNR or withdrawal of care, Hospice)? DNR status @ -No What co-morbidities impacted this encounter? (DM, HTN, Smoking, COPD, CAD, Cancer, CVA, ARF, Chemo, Hep., AIDS, mental health diagnosis, sleep apnea, morbid obesity)? @ -None Was patient admitted / discharged? Hospital course, mention meds given and route, prescriptions, significant lab abnormalities, going to OR and other pertinent info. @ -Discharge. Patient has chronic headache. No neurological deficit. CT of the brain shows age-related atrophic and chronic small vessel skin change without acute intracranial process. Labs unremarkable. Patient given migraine cocktail with improvement. He is referred to neurology today Undiagnosed new problem with uncertain prognosis? @ -No Drug Therapy requiring intensive monitoring for toxicity (Heparin, Nitro, Insulin, Cardizem)? @ -No Were any procedures done? @ -No Diagnosis/symptom? @ -Chronic headache Acute, or Chronic, or Acute on Chronic? @ Acute on chronic Uncomplicated (without systemic symptoms) or Complicated (systemic symptoms)? @ -Uncomplicated Side effects of treatment? @ -No Exacerbation, Progression, or Severe Exacerbation? @ -No Poses a threat to life or bodily function? How? (Chest pain, USA, CT, pneumonia, PE, COPD, DKA, ARF, appy, cholecystitis, CVA, Diverticulitis, Homicidal, Bhatti icidal, threat to staff... and all critical care pts) @ -No Dr. Nuno is my attending - Lab Data Result diagrams: 02/14/23 20:35 02/14/23 20:35 Lab Results 02/14/23 02/14/23 Range/Units 20:35 20:35 WBC 3.6 L (3.8-10.6) k/uL RBC 4.82 (4.30-5.90) m/uL Hgb 15.3 (13.0-17.5) gm/dL Hct 44.6 (39.0-53.0) % MCV 92.4 (80.0-100.0) fL MCH 31.7 (25.0-35.0) pg MCHC 34.3 (31.0-37.0) g/dL RDW 13.2 (11.5-15.5) % Plt Count 175 (150-450) k/uL MPV 8.4 Neutrophils % (Manual) 39 % Lymphocytes % (Manual) 42 % Monocytes % (Manual) 12 % Eosinophils % (Manual) 7 % Neutrophils # (Manual) 1.40 (1.3-7.7) k/uL Lymphocytes # (Manual) 1.51 (1.0-4.8) k/uL Monocytes # (Manual) 0.43 (0-1.0) k/uL Eosinophils # (Manual) 0.25 (0-0.7) k/uL Nucleated RBCs 0 (0-0) /100 WBC Manual Slide Review Performed Sodium 139 (137-145) mmol/L Potassium 3.9 (3.5-5.1) mmol/L Chloride 104 (98-107) mmol/L Carbon Dioxide 25 (22-30) mmol/L Anion Gap 10 mmol/L BUN 13 (9-20) mg/dL Creatinine 0.81 (0.66-1.25) mg/dL Est GFR (CKD-EPI)AfAm >90 (>60 ml/min/1.73 sqM) Est GFR (CKD-EPI)NonAf >90 (>60 ml/min/1.73 sqM) Glucose 92 (74-99) mg/dL Calcium 8.7 (8.4-10.2) mg/dL Total Bilirubin 0.5 (0.2-1.3) mg/dL AST 29 (17-59) U/L ALT 23 (4-49) U/L Alkaline Phosphatase 66 (38-126) U/L Total Protein 7.2 (6.3-8.2) g/dL Albumin 4.1 (3.5-5.0) g/dL Disposition Clinical Impression: Chronic headache Disposition: HOME SELF-CARE Condition: Good Instructions (If sedation given, give patient instructions): Acute Headache (ED) Additional Instructions: Follow-up with neurology in 1-2 days. Take prescription given by primary care provider for pain. Return to the emergency department if you experience new, concerning, or worsening symptoms Is patient prescribed a controlled substance at d/c from ED?: No Referrals: Angela Walton MD [Primary Care Provider] - 1-2 days Gino Parker MD [STAFF PHYSICIAN] - 1-2 days
[2023-02-14 22:47] VITALS: BP 105/68; PULSE 69
[2023-02-14 23:26] LABS: Eosinophils # (M) 0.25 k/uL (0-0.7); Lymphocytes # (M) 1.51 k/uL (1.0-4.8); Monocytes # (M) 0.43 k/uL (0-1.0); Neutrophils % (M) 39 %; Nucleated Red Blood Cells 0 /100 WBC (0-0); Total Cells Counted 100
== END 2023-02-14 22:48 | disposition home or self-care (01) ==
LOC: EC 18:57
DX: G89.29 Other chronic pain (principal); R51.9 Headache, unspecified; Z87.891 Personal history of nicotine dependence
CPT/HCPCS: 36415; 80053; 85025; 70450; 99284; 96374; 96375 ×3; 96361; J1200; J1100; J2765; J1885